=== PATIENT | male | born 1950 | race Two or more races ===

== ENCOUNTER 2024-12-09 19:01 | Emergency (ER) | payer BC ==
[~2024-12-09] VITALS: Ht 175.3 cm; Wt 98.6 kg
--- NOTE | 2024-12-09 20:25 | ED.PDOC ---
GI ASSESSMENT HPI Comments This is a 74 year old male presenting to the ED with chief complaint of significant upper abdominal pain. Patient reports that he has been experiencing epigastric abdominal pain with associated nausea, vomiting, and diarrhea since earlier today. Patient relays that he was seen at another facility and was advised to come to the ED for further evaluation. Patient denies any fever, chills, hematemesis, flank pain, melena, or dizziness. Patient was hypertensive on arrival. Chief Complaint: Abdominal Pain Time Seen by MD: 20:24 Reviewed Notes: Nurses Notes, Medications, Allergies Allergies: Coded Allergies: NO KNOWN ALLERGIES (Unverified , 12/09/24) Information Source: Patient Mode of Arrival: Ambulatory Timing: Hours Duration: Since onset Prehospital treatment: None Quality: Aching Vomitus: Watery Stool: Watery Severity: Moderate Recent: None Recent Hx of: None Pain Location: Epigastric Modifying Factors: Nothing Associated sign and symptoms: Nausea, Vomiting, Diarrhea, Abdominal Pain Past Medical History PAST MEDICAL HISTORY: HTN Surgical History: Denies all surgeries Family History Family History: Reviewed,noncontributory to illness Social History Smoker: Non-Smoker Alcohol: Denies ETOH Use Drugs: Denies Drug Use Lives In: Home Constitutional: denies: chills, diaphoresis, fatigue, fever, malaise, sweats, weakness, others EENTM: denies: blurred vision, double vision, ear bleeding, ear discharge, ear drainage, ear pain, ear ringing, eye pain, eye redness, hearing loss, mouth pain, mouth swelling, nasal discharge, nose bleeding, nose congestion, nose pain, photophobia, tearing, throat pain, throat swelling, voice changes, others Respiratory: denies: cough, hemoptysis, orthopnea, SOB at rest, shortness of breath, SOB with excertion, stridor, wheezing, others Cardiovascular: denies: chest pain, dizzy spells, diaphoresis, Dyspnea on exertion, edema, irregular heart beat, left arm pain, lightheadedness, palpitations, PND, syncope, others Gastrointestinal: reports: abdominal pain, diarrhea, nausea, vomiting; denies: abdomen distended, blood streaked bowels, constipated, dysphagia, difficulty swallowing, hematemesis, melena, poor appetite, poor fluid intake, rectal bleeding, rectal pain, others Genitourinary: denies: burning, dysuria, flank pain, frequency, hematuria, incontinence, penile discharge, penile sore, pain, testicle pain, testicle swelling, urgency, others Neurological: denies: dizziness, fainting, headache, left sided numbness, left sided weakness, numbness, paresthesia, pre-existing deficit, right sided numbness, right sided weakness, seizure, speech problems, tingling, tremors, weakness, others Musculoskeletal: denies: back pain, gout, joint pain, joint swelling, muscle pain, muscle stiffness, neck pain, others Integumetry: denies: bruises, change in color, change in hair/nails, dryness, laceration, lesions, lumps, rash, wounds, others Allergic/Immunocompromised: denies: Difficulty Healing, Frequent Infections, Hives, Itching, others Hematologic/Lymphatic: denies: anemia, blood clots, easy bleeding, easy bruising, swollen glands, others Endocrine: denies: excessive hunger, excessive sweating, excessive thirst, excessive urination, flushing, intolerance to cold, intolerance to heat, unexplained weight gain, unexplained weight loss, others Psychiatric: denies: anxiety, bipolar disorder, depression, hopeless, panic disorder, schizophrenia, sleepless, suicidal, others All Other Systems: Reviewed and Negative Physical Exam General Appearance: Moderate Distress (Moderate distress due to upper GI pain.), Obese HEENT: Normal ENT Inspection, Pharynx Normal, TMs Normal Neck: Full Range of Motion, Non-Tender, Normal, Normal Inspection Respiratory: Chest Non-Tender, Lungs Clear, No Accessory Muscle Use, No Respiratory Distress, Normal Breath Sounds Cardiovascular: No Edema, No JVD, No Murmur, No Gallop, Normal Peripheral Pulses, Regular Rate/Rhythm Breast Exam: Deferred Gastrointestinal: Other (Diffuse bilateral epigastric pain with a rigid abdomen. No pulsatile masses, but difficult to assess due to abdominal tightness.) Genitalia: Deferred Pelvic: Deferred Rectal: Deferred Extremities: No calf tenderness, Normal inspection Neurologic: Alert Cerebellar Function: NOT DONE Reflexes: NOT DONE Skin: Dry, Normal Color, Warm Lymphatic: No Adenopathy Was a procedure done? Was a procedure done?: No GI differential Dx Differential Diagnosis: Cholangitis, Cholecystitis, Constipation, Diverticular disease, Gastritis/PUD, Gastroenteritis, GI hemorrhage, PID, UTI X-Ray, Labs, Meds, VS Vital Signs Date Time Temp Pulse Resp B/P (MAP) Pulse Ox O2 Delivery O2 Flow Rate FiO2 12/09/24 22:52 97.7 80 16 172/89 (116) 95 97.7 12/09/24 22:52 80 16 95 Room Air 12/09/24 19:06 98.1 74 18 171/89 97 98.1 Lab Test 12/09/24 19:51 Range/Units White Blood Count 7.2 4.4-10.8 10^3/uL Red Blood Count 4.53 4.5-5.90 10^6/uL Hemoglobin 14.0 13.5-17.5 g/dL Hematocrit 40.4 L 41.0-53.0 % Mean Corpuscular Volume 89.2 80.0-100.0 fL Mean Corpuscular Hemoglobin 30.8 28.0-32.0 pg Mean Corpuscular Hemoglobin Concent 34.6 32.0-36.0 g/dL Red Cell Distribution Width 13.7 11.8-14.3 % Platelet Count 178 140-450 10^3/uL Mean Platelet Volume 9.2 6.9-10.8 fL Neutrophils (%) (Auto) 65.8 37.0-80.0 % Lymphocytes (%) (Auto) 26.0 10.0-50.0 % Monocytes (%) (Auto) 6.3 0.0-12.0 % Eosinophils (%) (Auto) 1.5 0.0-7.0 % Basophils (%) (Auto) 0.4 0.0-2.0 % Neutrophils # (Auto) 4.8 1.6-8.6 10 ^3/uL Lymphocytes # (Auto) 1.9 0.4-5.4 10 ^3/uL Monocytes # (Auto) 0.5 0-1.3 10 ^3/uL Eosinophils # (Auto) 0.1 0-0.8 10 ^3/uL Basophils # (Auto) 0 0-0.2 10 ^3/uL Nucleated Red Blood Cells 0.2 % Sodium Level 135 L 136-145 mmol/L Potassium Level 4.0 3.5-5.1 mmol/L Chloride Level 101 98-107 mmol/L Carbon Dioxide Level 27 20-31 mmol/L Anion Gap 7 5-15 Blood Urea Nitrogen 10 9-23 mg/dL Creatinine 1.18 0.700-1.30 mg/dL Glomerular Filtration Rate Calc 64 >90 mL/min BUN/Creatinine Ratio 8.5 L 10.0-20.0 Serum Glucose 101 74-106 mg/dL Calcium Level 9.6 8.7-10.4 mg/dL Lipase 30 12-53 U/L Current Medications Medications (Trade) Dose Ordered Sig/Bridger Route Start Time Stop Time Status Last Admin Al Hydrox/Mg Hydrox/Simethicone (Maalox Plus) 30 ml ONCE ONCE PO 12/09/24 22:15 12/09/24 22:16 DC 12/09/24 22:49 Lidocaine HCl (Xylocaine 2% Viscous) 3 ml ONCE ONCE PO 12/09/24 22:15 12/09/24 22:16 DC 12/09/24 22:50 X-Ray, Labs, Meds, VS Comment All studies performed the ED were evaluated by me personally. Serum studies were unremarkable for any systemic concerns. CT of the abdomen and pelvis was unremarkable for any acute intra-abdominal concerns. Patient appears to be suffering from a gastritis. Advised patient utilize medication as needed as well as good hydration and healthy nutrition. Additionally, advised patient to follow up with the primary care provider for discussions related to improved blood pressure management. Time of 1ST Reevaluation: 23:05 Reevaluation 1ST: Improved Consultation: PCP Patient Education/Counseling: Diagnosis, Treatment Family Education/Counseling: Diagnosis, Treatment, No Family Present SEPSIS Sepsis Screen Date sepsis recognized/suspect: Dec 09, 2024 Time Sepsis recognized/suspect: 1906 Recent Procedure: No On Antibiotic Therapy: No Respiratory Rate >20: No Heart Rate >90: No Temp<36 C (96.8 F) or >38.3 C: No SBP <90 or MAP <65 mmHG: No New Acute Mental Status Change: No Is the patient on CPAP, BIPAP,: No Physician Orders Ct Ab Pel With Iv Con Only (12/09/24 19:21) Heplock Iv (12/09/24 ) Clonidine Hcl Tablet (Catapres Tablet) (12/09/24 23:15) Vital Signs Date Time Temp Pulse Resp B/P (MAP) Pulse Ox O2 Delivery O2 Flow Rate FiO2 12/09/24 22:52 97.7 80 16 172/89 (116) 95 97.7 12/09/24 22:52 80 16 95 Room Air 12/09/24 19:06 98.1 74 18 171/89 97 98.1 Laboratory Tests Test 12/09/24 19:51 White Blood Count 7.2 10^3/uL (4.4-10.8) Medications Medications Dose Ordered Sig/Bridger Route Start Time Stop Time Status Last Admin Dose Admin Al Hydrox/Mg Hydrox/Simethicone 30 ml ONCE ONCE PO 12/09/24 22:15 12/09/24 22:16 DC 12/09/24 22:49 Lidocaine HCl 3 ml ONCE ONCE PO 12/09/24 22:15 12/09/24 22:16 DC 12/09/24 22:50 Departure 1 Departure Time of Disposition: 23:06 Impression: Primary Impression: Gastritis Additional Impression: Hypertensive urgency Disposition: HOME / SELF CARE / HOMELESS Condition: Stable Additional Instructions: Advised patient utilize medication as directed as well as additional medication as needed. Good hydration and healthy nutrition throughout. Patient should follow up with the primary care provider to discuss improved management of what is currently poorly controlled hypertension. e-Prescriptions Ondansetron Odt 4MG Tab (ZOFRAN PO) 4 Mg Tb 4 MG PO Q6HP PRN, #15 TAB ODT TAB-DISSOLVE IN MOUTH, THEN SWALLOW Prov: LANDY FELIX 12/09/24 Calcium Carbonate-Simethicone (Maalox Advanced Maximum S) 1 Chw Chw 1 CHW PO Q8HP PRN, #30 TAB.CHEW Prov: LANDY FELIX 12/09/24 Omeprazole Magnesium (Omeprazole) 20 Mg Tab 20 MG PO DAILY for 21 Days, #21 TAB Prov: LANDY FELIX 12/09/24 Discharged With: Self, Friend Critical Care Note Critical Care Time?: No Stability Stability form required: No Heart Score Heart Score: Heart Score Response (Comments) Value History N/A 0 EKG N/A 0 Age N/A 0 Risk Factors N/A 0 Troponin N/A 0 Total 0 I personally scribed for LANDY FELIX ([email or web address]) on 12/09/24 at 20:25. Electronically submitted by Matt Posada ([email or web address]). LANDY FELIX Dec 09, 2024 20:25
[2024-12-09 20:37] LABS: Hematocrit 40.4 % (41.0-53.0); Hemoglobin 14.0 g/dL (13.5-17.5); Mean Corpuscular Hemoglobin 30.8 pg (28.0-32.0); Mean Corpuscular Volume 89.2 fL (80.0-100.0); Nucleated Red Blood Cells % 0.2 %
[2024-12-09 20:40] LABS: Chloride 101 mmol/L (98-107); Potassium 4.0 mmol/L (3.5-5.1)
[2024-12-09 20:41] LABS: Anion Gap 7 (5-15); Calcium 9.6 mg/dL (8.7-10.4); Carbon Dioxide 27 mmol/L (20-31)
[2024-12-09 20:46] LABS: BUN/Creatinine Ratio 8.5 (10.0-20.0); Blood Urea Nitrogen 10 mg/dL (9-23); Glucose 101 mg/dL (74-106); Lipase 30 U/L (12-53)
[2024-12-09 20:47] LABS: Sodium 135 mmol/L (136-145)
[2024-12-09] MEDS: IOHEXOL 300 MG/ML 100ML BOTTLE IJ ONE (22:18)
[2024-12-09] MEDS: MAALOX PLUS or MAALOX 30 ML PO ONE (22:49)
[2024-12-09] MEDS: LIDOCAINE VISCOUS 2% 15ML UD PO ONE (22:50)
--- NOTE | 2024-12-09 22:57 | DVH ---
Exam: CT CT AB PEL WITH IV CON ONLY History: Diffuse epigastric pain COMPARISON: None Technique: Multidetector spiral CT of the abdomen and pelvis was performed from lung bases to pubic s ymphysis. Intravenous contrast was administered during this examination. Portal venous imaging was o btained. Axial, coronal and sagittal multiplanar reformats were performed by the technologist on a [employer] workstation. Radiation Dose : 1. Abdomen/Pelvis: CTDIvol 21.15 mGy, DLP 1125.36 mGy*cm. CONTRAST: Type of contrast: Omnipaque 300 Contrast injected: 100 ml Findings: Lung Bases: Linear scarring at the lung bases. Liver: Multiple small hepatic cysts. Gallbladder and Biliary Tree: Cholelithiasis noted without secondary findings of cholecystitis or anai iary obstruction. Spleen: Unremarkable Pancreas: The pancreas is normal in appearance without focal lesions or abnormal enhancement. Adrenal Glands: Unremarkable Kidneys: Bilateral renal cysts. Bladder: Unremarkable Bowel: The stomach is grossly normal in appearance. Small bowel and colon are normal in caliber and d istribution. The appendix is not visualized; however, no secondary findings of acute appendicitis jerica ntified. Ascites: Absent Lymphadenopathy: No mesenteric, retroperitoneal or periportal lymphadenopathy. Abdominal Wall and Mesentery: Unremarkable. Vasculature: The visualized abdominal aorta is normal in size and caliber. Abdominal and pelvic vess els demonstrate normal enhancement. Pelvic Organs: Unremarkable Musculoskeletal: No aggressive focal bony lesions, acute fractures or dislocation. IMPRESSION: No acute abdominal or pelvic finding. Radiation optimization: All CT scans at this facility use at least one of these dose optimization kacey hniques: automated exposure control mA and/or kV adjustment per patient size (includes targeted exam s where dose is matched to clinical indication) or iterative reconstruction.
[2024-12-09] MEDS ORDERED: ZOFR4T PO (23:08)
[2024-12-09] MEDS ORDERED: CALC100023 PO (23:08)
[2024-12-09] MEDS ORDERED: OMEP-434 PO (23:08)
[2024-12-10 01:03] VITALS: PULSE 70; RESP 16; TEMP 98; O2SAT 98
[2024-12-10 02:10] VITALS: BP 145/92
[2024-12-10] MEDS: PANTOPRAZOLE 40 MG TAB PO ONE (02:20)
[2024-12-10] MEDS: DICYCLOMINE HCL (10MG/ML) 2 ML AMPULE IM ONE (02:20)
== END 2024-12-10 02:25 | disposition home or self-care (01) ==
LOC: ER 19:16
DX: K29.70 Gastritis, unspecified, without bleeding (principal); I16.0 Hypertensive urgency; I10 Essential (primary) hypertension
CPT/HCPCS: 36415; 74177; 80048; 83690; 85025; 99285; Q9967